=== PATIENT | male | born 1965 | race Caucasian/White ===

== ENCOUNTER 2020-03-15 08:57 | Day surgery (SDC) | payer OTHER ==
[2020-03-11 11:26] LABS: BASOPHILS # (AUTO) 0.1 X10'3 (0-0.2); BASOPHILS % (AUTO) 0.8 % (0-1); EOSINOPHILS # (AUTO) 0.1 X10'3 (0-0.9); EOSINOPHILS % (AUTO) 0.8 % (0-6); LYMPHOCYTES % (AUTO) 22.5 % (21-51); MEAN CORPUSCULAR HEMOGLOBIN 31.7 PG (27.0-31.0); MEAN CORPUSCULAR HGB CONC 33.6 g/dL (33.0-36.5); MEAN CORPUSCULAR VOLUME 94.3 FL (78-98); MEAN PLATELET VOLUME 7.8 FL (7.4-10.4); MONOCYTES % (AUTO) 11.7 % (2-12); NEUTROPHILS # (AUTO) 5.8 X10'3 (1.8-7.7); NEUTROPHILS % (AUTO) 64.2 % (42-75); PRE OP HEMATOCRIT 46.5 % (42.0-52.0); PRE OP HEMOGLOBIN 15.6 g/dL (14.0-17.9); PRE OP PLATELET COUNT 338 X10'3 (140-440); RED BLOOD COUNT 4.94 X10'6 (4.70-6.10); RED CELL DISTRIBUTION WIDTH 13.7 % (11.5-14.5)
[2020-03-11 11:26] LABS: CLARITY,URINE CLEAR (Clear); COLOR,URINE YELLOW (Yellow); GLUCOSE, URINE NEGATIVE (Neg); KETONES,URINE NEGATIVE (Neg); LEUKOCYTE ESTERASE ,URINE NEGATIVE (Neg); NITRITES, URINE NEGATIVE (Neg); OCCULT BLOOD,URINE SMALL (Neg); PROTEIN,URINE NEGATIVE (Neg)
[2020-03-11 11:28] LABS: UA COLLECTION TYPE CLN CATCH MIDSTREAM
[2020-03-11 11:32] LABS: SQUAMOUS EPITHELIAL CELL,UR FEW /LPF (FEW)
[2020-03-11 11:33] LABS: BACTERIA,URINE NONE SEEN /HPF (Neg); MUCUS STRANDS NONE SEEN /LPF (Neg); RBC,URINE 0-2 /HPF (0-2); SPERM FEW /HPF (NEGATIVE); WBC,URINE 0-4 /HPF (0-4)
[2020-03-11 11:48] LABS: ALBUMIN 3.5 G/DL (3.4-5.0); ALKALINE PHOSPHATASE 48 IU/L (46-116); BLOOD UREA NITROGEN 20 MG/DL (7-18); BUN/CREATININE RATIO 19.2 (5.4-32.0); CHLORIDE 107 MMOL/L (99-107); CREATININE 1.04 MG/DL (0.60-1.10); PRE OP ALT 69 U/L (30-65); PRE OP ANION GAP 8 (8-16); PRE OP AST 30 U/L (10-37); PRE OP BILIRUB, TOTAL 0.4 MG/DL (0.0-1.0); PRE OP GLUCOSE 98 MG/DL (70-104); PRE OP POTASSIUM 3.8 MMOL/L (3.4-5.1); PRE OP SODIUM 143 MMOL/L (135-145); TOTAL CARBON DIOXIDE 28.1 MMOL/L (24-32); eGFR 74 ML/MIN
[~2020-03-15] VITALS: Ht 177.8 cm; Wt 106.6 kg
[2020-03-15] VITALS (17 sets, daily range): BP systolic 122–158; BP diastolic 78–100
[~2020-03-15 08:57] MED LIST: NO HOME MEDS; cefazolin/dext.iso 2gm/50ml 50 ML IV ONE; famotidine 20mg tablet PO ONE; ringers solution, lacted 1,000 ML IV SCH
[2020-03-15] MEDS ORDERED: MIDAZolam 5mg/5ml vial ONE (11:48)
[2020-03-15] MEDS ORDERED: fentaNYL/PF 50MCG/1 ML 2ML syringe ONE ×3 (11:48→13:33)
[2020-03-15] MEDS ORDERED: bacitracin 15gm ointment TP ONE (13:09)
[2020-03-15] MEDS ORDERED: rocuronium 10mg/ml inj IV ONE ×2 (13:13→14:07)
[2020-03-15] MEDS ORDERED: propofol inj 20 ML IV ONE (13:13)
[2020-03-15] MEDS ORDERED: ondansetron/PF 4mg/2ml inj ONE ×2 (13:13→14:03)
[2020-03-15] MEDS ORDERED: dexamethasone sod phosphate 4mg/ml inj. ONE (13:13)
[2020-03-15] MEDS ORDERED: acetaminophen 1,000mg/100ml IV 100 ML IV ONE (13:13)
[2020-03-15] MEDS ORDERED: LIDOcaine 1%/PF 5ML 10 MG/ML VIAL ONE (13:13)
[2020-03-15] MEDS ORDERED: neostigmine methylsulfate 1 MG/ML 10ml vial ONE (13:28)
[2020-03-15] MEDS ORDERED: glycopyrrolate 0.2mg/ml inj ONE (13:28)
[2020-03-15] MEDS ORDERED: metoprolol tartrate 1mg/ml inj IV ONE (14:01)
--- NOTE | 2020-03-15 14:13 | NUR ---
RECEIVED FROM OR VIA [facility] ACCOMPANIED BY ANESTHESIOLOGIST DR HARMON, REPORT GIVEN. PT VERY DROWSY BUT AROUSES AND DENIES PAIN AT THIS TIME. 20 GAUGE PIV R HAND PATENT AND RUNNING LR AT 100 ML/HR. PPULSES PALPABLE EXCEPT UNABLE TO PALPATE LLE COVERED WITH DRESSING. ADIEL SPLINT RLE CDI, BRISK CAP REFILL, SKIN PINK AND WARM, ABD SOFT, LOWER EXTREMITIES ELEVATED, RESTING COMFORTABLY
[2020-03-15] MEDS ORDERED: meperidine/PF 25mg/ml syringe ONE (14:50)
[2020-03-15] MEDS ORDERED: morphine 2 MG/ML inj. syringe IV PRN (14:55)
[2020-03-15] MEDS ORDERED: morphine 4 MG/ML inj SYRINge IV PRN (14:55)
[2020-03-15] MEDS ORDERED: meperidine/PF 25mg/ml syringe IV PRN ×3 (14:55)
[2020-03-15] MEDS ORDERED: ringers solution, lacted 1,000 ML IV SCH (14:55)
[2020-03-15] MEDS ORDERED: proCHLORperazine 10 MG/2 ml inj IV PRN (14:55)
[2020-03-15] MEDS ORDERED: ondansetron/PF 4mg/2ml inj IV PRN (14:55)
--- NOTE | 2020-03-15 16:43 | NUR ---
PT A&O X4 WITH STATED PAIN LEVEL OF 3 AT THIS TIME. 20 GAUGE PIV R HAND DC/D CATH TIP INTACT. PPULSES PALPABLE EXCEPT UNABLE TO PALPATE LLE COVERED WITH DRESSING. ADIEL SPLINT RLE CDI, BRISK CAP REFILL, SKIN PINK AND WARM, ABD SOFT, LOWER EXTREMITIES ELEVATED, RESTING COMFORTABLY. DISCHARGE INSTRUCTIONS GIVEN AND PT VERBALIZED UNDERSTANDING. TOLERATING FLUIDS, ABLE TO DRESS SELF AND AMBULATE USING WALKER, ABLE TO VOID.TRANSPORTED VIA WHEELCHAIR TO FRIEND IN PERSONAL VEHICLE TO HOME.
== END 2020-03-15 16:43 | disposition home or self-care (01) ==
LOC: PAS 08:57
PROVIDERS: ATTEND Podiatrist Foot & Ankle Surgery
DX: M25.372 Other instability, left ankle (principal); Q66.89 Other specified congenital deformities of feet; M65.872 Other synovitis and tenosynovitis, left ankle and foot; E66.9 Obesity, unspecified; Z68.33 Body mass index [BMI] 33.0-33.9, adult; G89.18 Other acute postprocedural pain; Z79.899 Other long term (current) drug therapy; Z20.828 Contact with and (suspected) exposure to other viral communicable diseases; Z87.891 Personal history of nicotine dependence
CPT/HCPCS: 27695; 28086; 28238; 29895; 36415; 64447; 64450; 73620; 76000; 76942; 80053; 81001; 82948; 85025; 87635; 93005; A6222; C1713; J0131; J1100; J2175; J2250; J2405; J2704; J2710; J3010; A4215; A4618; A6449; A7000; J3490; J7120